=== PATIENT | male | born 1940 | race Caucasian/White ===

== ENCOUNTER 2018-12-27 11:15 | Emergency (ER) | payer MEDICARE, SELFPAY ==
--- NOTE | 2018-12-27 11:22 | DI.RAD.S_ITS ---
PROCEDURE: XR CHEST 1V INDICATIONS: fall, trauma, preop TECHNIQUE: One view of the chest was acquired. COMPARISON: [facility], , CHEST 2 VIEW, 10/08/2016, 11:42. [facility], , CHEST 2 VIEW, 09/21/2014, 10:59. [facility], , CHEST 1 VIEW, 09/24/2011, 2:54. FINDINGS: Surgical changes and devices: Left cardiac pacer device with leads projecting over the right atrium and right ventricle. Mediastinal surgical clips are noted. Mediastinal ostial markers noted. Lungs and pleura: No pleural effusions or pneumothoraces. There are hazy lateral left basilar and bilateral perihilar pulmonary opacities, with lateral left basilar pulmonary opacities persist during the lateral left hemidiaphragm. Lungs are hypoinflated. Mediastinum: Mediastinal contours appear normal. Heart size is normal. There is calcified plaque of the aortic arch. Bones and chest wall: No suspicious bony lesions. Overlying soft tissues appear unremarkable. IMPRESSION: Pulmonary hypoinflation with bilateral perihilar and left basilar opacities likely representing atelectasis (versus pneumonia). Dictated by: Shayan Cox M.D. on 12/27/2018 at 11:57 Approved by: Shayan Cox M.D. on 12/27/2018 at 12:13
[2018-12-27 11:25] VITALS: BP 154/82; PULSE 68; RESP 19; TEMP 36.1; O2SAT 93; BMI 35.1
--- NOTE | 2018-12-27 11:47 | ED.MALEGU ---
HPI - Male Genitourinary General Chief complaint: Urogenital-Male Stated complaint: Frequent urination, high fever & blood pressure Time Seen by Provider: 12/27/18 11:18 Source: patient and family Mode of arrival: ambulatory Limitations: no limitations History of Present Illness HPI Narrative: 78-year-old male nonsmoker with frequent confusion, diabetes, CHF, aortic stenosis, BPH, gait disturbance, end-stage renal failure presents with a chief complaint of urinary frequency over the course of the night, low-grade fever as high as 100 F and elevated blood pressure up to the 150s. Related Data Home Medications Medication Instructions Recorded Confirmed ASPIRIN (#ASPIRIN CHILDREN'S) 81 mg PO BID #0 09/24/11 BUMETANIDE (BUMEX) 2 mg PO Q DAY #0 09/24/11 Coenzyme Q10 (#COENZYME Q-10) 200 mg PO Q DAY #0 09/24/11 LACTULOSE (CONSTULOSE) 60 ml PO Q DAY #0 09/24/11 TIMOLOL MALEATE 1 drp OU QAM #0 09/24/11 allopurinol 150 mg PO QDAY #0 09/24/11 amlodipine [Norvasc] 5 mg PO QDAY #0 09/24/11 bupropion HCl [Wellbutrin SR] 100 mg PO QDAY #0 09/24/11 cholecalciferol (vitamin D3) 1,000 unit PO QDAY #0 09/24/11 [Vitamin D3] fenofibrate nanocrystallized 145 mg PO QDAY #0 09/24/11 [Tricor] gabapentin [Neurontin] 600 mg PO QID #0 09/24/11 insulin aspart U-100 [Novolog 42 - 48 u SC PRN PRN #0 09/24/11 PenFill U-100 Insulin] insulin glargine [Lantus Solostar 12 unit SQ BID #0 09/24/11 U-100 Insulin] olmesartan [Benicar] 40 mg PO QDAY #0 09/24/11 pantoprazole [Protonix] 40 mg PO HS #0 09/24/11 [CENTRUM SLIVER] #0 02/23/13 [FISH OIL ] #0 02/23/13 clonidine HCl 0.5 mg PO BID #0 tab 02/23/13 colesevelam [WelChol] 625 mg PO BIDCC #0 tab 02/23/13 finasteride 5 mg PO QDAY #0 tab 02/23/13 hydrocodone-acetaminophen [Vicodin 1 tab PO Q4HP #0 tab 02/23/13 HP] Previous Rx's Medication Instructions Recorded cephalexin [Keflex] 500 mg PO QID 7 Days #28 cap 12/27/18 Allergies Allergy/AdvReac Type Severity Reaction Status Date / Time adhesive tape [ADHESIVE TAPE] AdvReac Mild TEARS THE Verified 12/27/18 11:25 SKIN hydroxyzine [HYDROXYZINE] AdvReac Mild HALLUCINATI Verified 12/27/18 11:25 ONS Iflfnyk-Cbp-Kfd Reductase AdvReac Mild LEG PAINS Verified 12/27/18 11:25 Inhibitor [VIUELLX-[id number]-KJW REDUCTASE INHIBITOR] travoprost [TRAVOPROST] AdvReac Mild RED EYES Verified 12/27/18 11:25 Review of Systems Constitutional Denies chills, Denies fever(s), Denies lethargy and Denies weakness Eyes Denies change in vision, Denies eye discharge, Denies irritation and Denies loss of vision ENT Ears, Nose, Mouth, and Throat: Denies change in voice, Denies neck pain and Denies sore throat Cardiovascular Denies chest pain, Denies irregular heart rhythm, Denies lightheadedness, Denies palpitations, Denies dyspnea, Denies dyspnea on exertion and Denies orthopnea Respiratory Denies cough, Denies dyspnea, Denies dyspnea on exertion and Denies wheezing Gastrointestinal Gastrointestinal: Denies abdominal pain, Denies change in bowel habits, Denies diarrhea, Denies nausea and Denies vomiting Genitourinary Denies hematuria, Denies flank pain, Reports urinary incontinence and Denies urinary urgency Musculoskeletal Denies neck pain Integumentary/Breasts Denies pruritus, Denies erythema, Denies rash and Denies wounds Neurologic Denies confusion, Denies loss of vision and Denies weakness Psychiatric Denies anxiety, Denies confusion, Denies depression, Denies homicidal ideation and Denies suicidal ideation Endocrine Denies palpitations Hematologic/Lymphatic Denies easy bruising Allergic/Immunologic Denies wheezing PFSH Social History Smoking Status: Never smoker Social History Smoking Status: Never smoker Exam Narrative Exam Narrative: GENERAL: 78-year-old male is pleasantly confused and at patient's neurologic baseline per the was at the bedside. GCS 15, alert and oriented x3 HEAD: Atraumatic. Normocephalic. No temporal or scalp tenderness. EYES: Pupils equal round and reactive. Extraocular motions intact. No scleral icterus. No injection or drainage. ENT: Nose without bleeding, purulent drainage or septal hematoma. Throat without erythema, tonsillar hypertrophy or exudate. Uvula midline. Airway patent. NECK: Trachea midline. No JVD or lymphadenopathy. Supple, nontender, no meningeal signs. CARDIOVASCULAR: Regular rate and rhythm without murmurs, gallops, or rubs. RESPIRATORY: Clear to auscultation. Breath sounds equal bilaterally. No wheezes, rales, or rhonchi. GASTROINTESTINAL: Abdomen soft, non-tender, nondistended. No hepato-splenomegaly, or palpable masses. No guarding. EXTREMITIES: No clubbing, cyanosis, or edema. No joint tenderness, effusion, or edema noted. BACK: Nontender without deformity or crepitance. No flank tenderness. NEURO: AOx3. SKIN: No rash or erythema. Initial Vital Signs Initial Vital Signs: Vital Signs Temperature 97.0 F L 12/27/18 11:25 Pulse Rate 68 12/27/18 11:25 Respiratory Rate 19 12/27/18 11:25 Blood Pressure 154/82 H 12/27/18 11:25 Pulse Oximetry 93 12/27/18 11:25 Course Course Narrative: Patient was noted to as 600 mL of urine in his bladder, Finley catheter placed, urine dip suggest UTI, sent for culture Orders Ordered: ED Orders 12/27/18 11:22 XR chest 1V Stat 12/27/18 11:40 Basic Metabolic Panel Stat Complete Blood Count AUTO DIFF Stat Lactate (Lactic Acid) Stat Magnesium Stat Procalcitonin Stat Troponin & CK Cardiac Panel Stat 12/27/18 11:50 Blood Culture Stat 12/27/18 12:26 Urine Culture Stat Urine Microscopic Stat 12/27/18 13:34 Trop I [Troponin I] Stat Vital Signs - 8 hr 12/27/18 11:25 12/27/18 12:08 12/27/18 14:13 Temperature 97.0 F L Pulse Rate 68 60 61 Respiratory Rate 19 18 16 Blood Pressure 154/82 H Blood Pressure [Right Arm] 144/76 H 170/86 H Pulse Oximetry 93 94 94 12/27/18 15:15 Temperature Pulse Rate 61 Respiratory Rate 20 Blood Pressure 169/83 H Blood Pressure [Right Arm] Pulse Oximetry 94 MDM - Male Genitourinary Lab Data Result diagrams: 12/27/18 11:40 12/27/18 11:40 Lab Results 12/27/18 12/27/18 12/27/18 Range/Units 11:40 11:40 11:40 WBC 9.9 (4.5-11.0) X10^3/uL RBC 4.89 (4.5-5.9) X10^6/uL Hgb 14.2 (13.5-17.5) g/dL Hct 43.6 (41-53) % MCV 89.1 (80-100) fL MCH 29.1 (26-34) PG MCHC 32.6 (30-36) % RDW 16.0 H (11.6-14.8) % Plt Count 164 (150-400) X10^3/uL Neut % (Auto) 81.0 H (50-75) % Lymph % (Auto) 12.5 L (25-40) % [place] % (Auto) 5.5 (3-14) % Eos % (Auto) 0.4 L (2-4) % Baso % (Auto) 0.6 (0-2) % Neut # (Auto) 8100 H (8552-5118) /uL Lymph # (Auto) 1200 (1421-6132) /uL [place] # (Auto) 500 (0-900) /uL Eos # (Auto) 0 (0-450) /uL Baso # (Auto) 100 (0-100) /uL Sodium 142 (137-145) mmol/L Potassium 4.1 (3.4-5.1) mmol/L Chloride 105 (98-107) mmol/L Carbon Dioxide 28 (22-32) mmol/L BUN 50 H (9-20) mg/dL Creatinine 2.80 H (0.66-1.25) mg/dL Estimated GFR 21.9 L (>60) mL/min BUN/Creatinine Ratio 17.9 (6-22) Glucose 250 H (80-110) mg/dL Lactate (0.7-2.1) mmol/L Calcium 9.8 (8.4-10.2) mg/dL Magnesium 2.0 (1.6-2.3) mg/dL Total Creatine Kinase (55-170) U/L CK-MB (CK-2) CK-MB (CK-2) Rel Index Troponin I (0.01-0.034) ng/mL Procalcitonin 0.12 (<0.5) ng/mL Urine RBC (0-5/HPF) Urine WBC (0-5/HPF) Ur Squamous Epith Cells (0-5/HPF) Urine Bacteria (None) Ur Culture Indicated? 12/27/18 12/27/18 12/27/18 Range/Units 11:40 11:40 12:26 WBC (4.5-11.0) X10^3/uL RBC (4.5-5.9) X10^6/uL Hgb (13.5-17.5) g/dL Hct (41-53) % MCV (80-100) fL MCH (26-34) PG MCHC (30-36) % RDW (11.6-14.8) % Plt Count (150-400) X10^3/uL Neut % (Auto) (50-75) % Lymph % (Auto) (25-40) % [place] % (Auto) (3-14) % Eos % (Auto) (2-4) % Baso % (Auto) (0-2) % Neut # (Auto) (9770-4117) /uL Lymph # (Auto) (9844-1274) /uL [place] # (Auto) (0-900) /uL Eos # (Auto) (0-450) /uL Baso # (Auto) (0-100) /uL Sodium (137-145) mmol/L Potassium (3.4-5.1) mmol/L Chloride (98-107) mmol/L Carbon Dioxide (22-32) mmol/L BUN (9-20) mg/dL Creatinine (0.66-1.25) mg/dL Estimated GFR (>60) mL/min BUN/Creatinine Ratio (6-22) Glucose (80-110) mg/dL Lactate 1.4 (0.7-2.1) mmol/L Calcium (8.4-10.2) mg/dL Magnesium (1.6-2.3) mg/dL Total Creatine Kinase 57 (55-170) U/L CK-MB (CK-2) TNP CK-MB (CK-2) Rel Index TNP Troponin I 0.067 H (0.01-0.034) ng/mL Procalcitonin (<0.5) ng/mL Urine RBC None seen (0-5/HPF) Urine WBC 1-5/hpf (0-5/HPF) Ur Squamous Epith Cells 0-1 /hpf (0-5/HPF) Urine Bacteria None seen (None) Ur Culture Indicated? Specimen cultured 12/27/18 Range/Units 13:34 WBC (4.5-11.0) X10^3/uL RBC (4.5-5.9) X10^6/uL Hgb (13.5-17.5) g/dL Hct (41-53) % MCV (80-100) fL MCH (26-34) PG MCHC (30-36) % RDW (11.6-14.8) % Plt Count (150-400) X10^3/uL Neut % (Auto) (50-75) % Lymph % (Auto) (25-40) % [place] % (Auto) (3-14) % Eos % (Auto) (2-4) % Baso % (Auto) (0-2) % Neut # (Auto) (8755-4983) /uL Lymph # (Auto) (5306-0721) /uL [place] # (Auto) (0-900) /uL Eos # (Auto) (0-450) /uL Baso # (Auto) (0-100) /uL Sodium (137-145) mmol/L Potassium (3.4-5.1) mmol/L Chloride (98-107) mmol/L Carbon Dioxide (22-32) mmol/L BUN (9-20) mg/dL Creatinine (0.66-1.25) mg/dL Estimated GFR (>60) mL/min BUN/Creatinine Ratio (6-22) Glucose (80-110) mg/dL Lactate (0.7-2.1) mmol/L Calcium (8.4-10.2) mg/dL Magnesium (1.6-2.3) mg/dL Total Creatine Kinase (55-170) U/L CK-MB (CK-2) CK-MB (CK-2) Rel Index Troponin I 0.059 H (0.01-0.034) ng/mL Procalcitonin (<0.5) ng/mL Urine RBC (0-5/HPF) Urine WBC (0-5/HPF) Ur Squamous Epith Cells (0-5/HPF) Urine Bacteria (None) Ur Culture Indicated? Urine Dip Bedside Urine Glucose Negative Bedside Urine Bilirubin - Negative Bedside Urine Ketone - Negative Urine Specific [place] 1.015 Bedside Urine Occult Blood - Negative Bedside Urine pH 6.5 Bedside Urine Protein ++ 100 Bedside Urine Urobilinogen +/- 1mg Bedside Urine Nitrite + Positive Bedside Urine Leukocytes + 70 Esterase MDM Narrative Medical decision making narrative: 78-year-old male with chief complaint of frequency of urination and urinary incontinence since last night. Found to have urinary retention with 600 cc of urine, Finley catheter placed. Urine POC with leukocytes, leuk esterase and nitrites. Patient treated with antibiotics, Finley catheter placed and encouraged to follow up with Urology, contact information provided. Patient given return precautions. Questions answered to his, and 's apparent satisfaction Discharge Plan Departure Patient Disposition: Home Clinical Impression: Acute retention of urine Urinary tract infection Qualifiers: Urinary tract infection type: site unspecified Hematuria presence: without hematuria Qualified Code(s): N39.0 - Urinary tract infection, site not specified Discharge Date/Time: 12/27/18 15:32 Interventions: ED Discharge Assessment Last Done: 12/27/18 15:15 Instructions: DI for Urinary Tract Infection (UTI), DI for Urinary Retention in Men Activity Restrictions/Additional Instructions: *You have been diagnosed with [acute urinary retention and urinary tract infection] *What to do: *Take medications as directed *Follow up with your primary care provider in 2-3 days, call for an appointment. Let them know you were seen in the Emergency Department and that we ask that you be seen in follow up *Return to ER if you should have any new, worsening or concerning symptoms, such as [fever over 101 F, shaking chills, persistent vomiting or other bothersome symptoms] Prescriptions: New cephalexin [Keflex] 500 mg capsule 500 mg PO QID 7 Days Qty: 28 RF: 0 No Action BUMETANIDE (BUMEX) 2 mg PO Q DAY Qty: 0 RF: 0 LACTULOSE (CONSTULOSE) 60 ml PO Q DAY Qty: 0 RF: 0 insulin glargine [Lantus Solostar U-100 Insulin] 100 UNIT/1 ML insulin pen 12 unit SQ BID Qty: 0 RF: 0 insulin aspart U-100 [Novolog PenFill U-100 Insulin] 100 UNIT/1 ML cartridge 42 - 48 u SC PRN PRNQty: 0 RF: 0 ASPIRIN (#ASPIRIN CHILDREN'S) 81 mg PO BID Qty: 0 RF: 0 Coenzyme Q10 (#COENZYME Q-10) 200 mg PO Q DAY Qty: 0 RF: 0 amlodipine [Norvasc] 5 MG tablet 5 mg PO QDAY Qty: 0 RF: 0 allopurinol 300 MG tablet 150 mg PO QDAY Qty: 0 RF: 0 bupropion HCl [Wellbutrin SR] 100 MG tablet extended release 12 hr 100 mg PO QDAY Qty: 0 RF: 0 olmesartan [Benicar] 20 MG tablet 40 mg PO QDAY Qty: 0 RF: 0 fenofibrate nanocrystallized [Tricor] 145 MG tablet 145 mg PO QDAY Qty: 0 RF: 0 cholecalciferol (vitamin D3) [Vitamin D3] 1,000 UNIT tablet 1,000 unit PO QDAY Qty: 0 RF: 0 pantoprazole [Protonix] 40 MG tablet,delayed release (DR/EC) 40 mg PO HS Qty: 0 RF: 0 gabapentin [Neurontin] 600 MG tablet 600 mg PO QID Qty: 0 RF: 0 TIMOLOL MALEATE 1 drp OU QAM Qty: 0 RF: 0 hydrocodone-acetaminophen [Vicodin HP] 10 MG/300 MG tablet 1 tab PO Q4HP Qty: 0 RF: 0 colesevelam [WelChol] 625 MG tablet 625 mg PO BIDCC Qty: 0 RF: 0 finasteride 5 MG tablet 5 mg PO QDAY Qty: 0 RF: 0 [CENTRUM SLIVER] Qty: 0 RF: 0 [FISH OIL ] Qty: 0 RF: 0 clonidine HCl 0.1 MG tablet 0.5 mg PO BID Qty: 0 RF: 0 Referrals: Drew Bermeo MD [Non-Staff] - Zoltan Wellington MD [Primary Care Provider] -
[2018-12-27 11:51] LABS: Add Manual Diff / Slide Review NO; Basophils Absolute Auto 100 /uL (0-100); Basophils Percent Auto 0.6 % (0-2); Eosinophils Absolute Auto 0 /uL (0-450); Eosinophils Percent Auto 0.4 % (2-4); Hematocrit 43.6 % (41-53); Hemoglobin 14.2 g/dL (13.5-17.5); Lymphocytes Absolute Auto 1200 /uL (1100-4500); Lymphocytes Percent Auto 12.5 % (25-40); Mean Corpuscular HGB Conc 32.6 % (30-36); Mean Corpuscular Hemoglobin 29.1 PG (26-34); Mean Corpuscular Volume 89.1 fL (80-100); Monocytes Absolute Auto 500 /uL (0-900); Monocytes Percent Auto 5.5 % (3-14); Neutrophils Absolute Auto 8100 /uL (1500-7000); Platelet Count 164 X10^3/uL (150-400); Red Blood Cell Count 4.89 X10^6/uL (4.5-5.9); White Blood Cell Count 9.9 X10^3/uL (4.5-11.0)
[2018-12-27 12:03] LABS: Creatine Kinase 57 U/L (55-170); Lactate (Lactic Acid) 1.4 mmol/L (0.7-2.1)
[2018-12-27 12:04] LABS: BUN Creatinine Ratio 17.9 (6-22); Blood Urea Nitrogen 50 mg/dL (9-20); Calcium 9.8 mg/dL (8.4-10.2); Carbon Dioxide 28 mmol/L (22-32); Chloride 105 mmol/L (98-107); Estimated Glomerular Filt Rate 21.9 mL/min (>60); Glucose 250 mg/dL (80-110); HEMOLYSIS < 15 (0-50); Potassium 4.1 mmol/L (3.4-5.1); Sodium 142 mmol/L (137-145)
[2018-12-27 12:08] VITALS: BP 144/76; PULSE 60; RESP 18; O2SAT 94
[2018-12-27 12:16] LABS: Troponin I 0.067 ng/mL (0.01-0.034)
[2018-12-27 12:18] LABS: Procalcitonin 0.12 ng/mL (<0.5)
[2018-12-27 14:06] LABS: Troponin I 0.059 ng/mL (0.01-0.034)
[2018-12-27 14:13] VITALS: BP 170/86; PULSE 61; RESP 16; O2SAT 94
[2018-12-27 14:29] LABS: Bacteria Urine None Seen; RBC Urine None Seen (0-5/HPF)
[2018-12-27 14:39] LABS: Culture Indicated Urine Specimen Cultured; Squamous Epithelial Cell Urine 0-1 /HPF (0-5/HPF); WBC Urine 1-5/HPF (0-5/HPF)
[2018-12-27 15:15] VITALS: BP 169/83; PULSE 61; RESP 20; O2SAT 94
--- NOTE | 2018-12-27 15:31 | PC.NURSE ---
stated concern over ability to get pt from car to house. Ambulation trial per MD VO. Did well. states about at his baseline
== END 2018-12-27 15:32 | disposition home or self-care (01) ==
PROVIDERS: Emergency Provider Emergency Medicine; PCP Family Medicine
DX: R33.8 Other retention of urine (principal); N39.0 Urinary tract infection, site not specified
CPT/HCPCS: 36415; 36591; 51701; 71045; 80048; 81003; 81015; 82550; 83605; 83735; 84145; 84484; 85025; 87040; 87086; 99284

== ENCOUNTER 2019-03-10 10:06 | Emergency (ER) | payer MEDICARE, SELFPAY ==
[2019-03-10 10:15] VITALS: BP 144/72; PULSE 59; RESP 20; TEMP 36.4
--- NOTE | 2019-03-10 11:11 | DI.RAD.S_ITS ---
PROCEDURE: XR CHEST 1V INDICATIONS: SHORTNESS OF BREATH TECHNIQUE: One view of the chest was acquired. COMPARISON: [facility], CR, XR CHEST 1V, 12/27/2018, 11:30. FINDINGS: Surgical changes and devices: A left-sided cardiac pacer/defibrillator is present. Median sternotomy wires are noted. Lungs and pleura: There are low lung volumes. Linear areas of increased density are evident at the right lung base. There is elevation of the right diaphragm. There is a vague density identified at the left lung base that partially obscures the left costophrenic angle. Mediastinum: Mediastinal contours appear normal. Heart size is enlarged. There is aortic atherosclerosis. Bones and chest wall: No suspicious bony lesions. Overlying soft tissues appear unremarkable. IMPRESSION: 1. Cardiomegaly without overt heart failure. 2. Probable left basilar atelectasis versus scarring. Superimposed pneumonia is difficult to exclude. 3. Minimal right basilar atelectasis/scarring. Dictated by: Anthony Melvin M.D. on 03/10/2019 at 10:40 Approved by: Anthony Melvin M.D. on 03/10/2019 at 10:48
--- NOTE | 2019-03-10 11:13 | ED.SOB ---
HPI - SOB/Dyspnea <Donna Villanueva CUPOLA OPERATOR - Last Filed: 03/10/19 15:38> General Chief Complaint: Shortness of Breath/Dyspnea Stated Complaint: Has been weak for 3 days, getting worse Time Seen by Provider: 03/10/19 11:00 Source: patient and family Mode of arrival: Wheelchair Limitations: no limitations History of Present Illness HPI Narrative: 78-year-old male with a history of CHF, pacemaker, chronic kidney failure, diabetes to, CAD, aortic valve replacement, DESTIN, and HDL, presents emergency department today with his . He states that he has fine and that his brought him here. He states that his tried to kill him with multiple pills. His explains that he was recently in [facility] in [facility], and was admitted on February 17 for CHF and fluid in his lungs. At that point he ended up staying 1 week in the hospital and another week in a rehab facility. Since she has brought him home, she states his legs have been weak and he is only able to ambulate from the bedroom to the bathroom, this has been unchanged since discharge from the rehab facility. However, she is concerned that he seems to be more short of breath and that he has gained 1 lb a day since discharge on March 02. She states his weight after discharge was 237 lbs and yesterday was 243 lbs. Patient is very irritable during history, he tries to talk over his , and believes he does not need to be here. He is alert and oriented. He states when he took all his pills he had a small amount of stomach pain. Denies chest pain, shortness of breath, abdominal pain, vomiting, fevers, diarrhea, weakness, orthopnea or other concerns. Related Data Home Medications Medication Instructions Recorded Confirmed Lantus Solostar U-100 Insulin 14 unit SQ BID PRN #0 09/24/11 03/10/19 Novolog PenFill U-100 Insulin 30 - 50 u SC PRN PRN #0 09/24/11 03/10/19 allopurinol 150 mg PO DAILY #0 09/24/11 03/10/19 aspirin 162 mg PO QPM #0 09/24/11 03/10/19 bupropion HCl [Wellbutrin SR] 100 mg PO BID #0 09/24/11 03/10/19 cholecalciferol (vitamin D3) 1,000 unit PO DAILY #0 09/24/11 03/10/19 [Vitamin D3] coenzyme Q10 [CoQ-10] 200 mg PO DAILY #0 09/24/11 03/10/19 fenofibrate nanocrystallized 145 mg PO QPM #0 09/24/11 03/10/19 [Tricor] clonidine HCl 0.1 mg PO BID #0 tab 02/23/13 03/10/19 colesevelam [WelChol] 625 mg PO BIDCC #0 tab 02/23/13 03/10/19 finasteride 5 mg PO QPM #0 tab 02/23/13 03/10/19 uiqsuhgh-gja-PY-lycopen-lutein 1 tab PO DAILY #0 02/23/13 03/10/19 [Centrum Silver Men] Fahad Red Fish Oil 2 cap PO DAILY 03/10/19 03/10/19 albuterol sulfate [ProAir HFA] 2 puff INHALATION Q4H PRN 03/10/19 03/10/19 fluoxetine 20 mg PO DAILY 03/10/19 03/10/19 fluticasone propionate 1 spray INTRANASAL DAILY PRN 03/10/19 03/10/19 gabapentin 100 mg PO QID 03/10/19 03/10/19 hydralazine 75 mg PO BID 03/10/19 03/10/19 hydrocodone-acetaminophen 1 tab PO Q4H PRN 03/10/19 03/10/19 lactulose [Generlac] 60 ml PO DAILY 03/10/19 03/10/19 latanoprost [Xalatan] 1 drp EYE-BOTH BEDTIME 03/10/19 03/10/19 metoprolol tartrate 50 mg PO BID 03/10/19 03/10/19 olmesartan 40 mg PO DAILY 03/10/19 03/10/19 pantoprazole 40 mg PO QPM 03/10/19 03/10/19 pregabalin 75 mg PO BID 03/10/19 03/10/19 timolol maleate 1 drp EYE-BOTH QAM 03/10/19 03/10/19 torsemide 20 mg PO DAILY 03/10/19 03/10/19 Allergies Allergy/AdvReac Type Severity Reaction Status Date / Time adhesive tape [ADHESIVE TAPE] AdvReac Mild TEARS THE Verified 12/27/18 11:25 SKIN hydroxyzine [HYDROXYZINE] AdvReac Mild HALLUCINATI Verified 12/27/18 11:25 ONS Ywdsrsl-Xew-Hsr Reductase AdvReac Mild LEG PAINS Verified 12/27/18 11:25 Inhibitor [OBOCLVD-LDS-JHW REDUCTASE INHIBITOR] travoprost [TRAVOPROST] AdvReac Mild RED EYES Verified 12/27/18 11:25 Review of Systems <ERICKA Peralta - Last Filed: 03/10/19 15:38> Review of Systems Narrative: REVIEW OF SYSTEMS: GENERAL: Denies fever or chills. HENT: No head trauma, hearing loss or sore throat. EYES: No loss of vision, double vision, eye pain, or irritation. CARDIOVASCULAR: No chest pain or syncope. RESPIRATORY: states that it appears that patient is more short of breath. GASTROINTESTINAL: No nausea, vomiting, diarrhea, or constipation. GENITOURINARY: No flank pain or dysuria. MUSCULOSKELETAL: No pain, weakness, or deformities. INTEGUMENTARY: No rash, lesions, or pruritus. NEURO: No numbness, tingling, memory loss, or confusion. PSYCH: No behavior or mood changes. PFSH <ERICKA Peralta - Last Filed: 03/10/19 15:38> Medical History CHF (congestive heart failure) (Acute) CKD (chronic kidney disease) (Acute) Diabetes type 2, controlled (Acute) Glaucoma (Acute) Pacemaker (Acute) Surgical History H/O aortic valve replacement (Acute) Social History Smoking Status: Never smoker Social History Smoking Status: Never smoker Exam <ERICKA Peralta - Last Filed: 03/10/19 15:38> Initial Vital Signs Initial Vital Signs: Vital Signs Temperature 97.6 F 03/10/19 10:15 Pulse Rate 59 L 03/10/19 10:15 Respiratory Rate 20 03/10/19 10:15 Blood Pressure 144/72 H 03/10/19 10:15 PHYSICAL EXAMINATION: GENERAL: Well groomed, alert. Patient is uncooperative, has a history of dementia. Answers questions promptly, however continues to resist care. Vital signs noted. HENT: Normocephalic, atraumatic. Ear canals patent. Oral mucosa is pink and moist. EYES: Conjunctiva pink, sclera white, no periorbital swelling. CHEST: Normal to inspection and without deformities. CARDIOVASCULAR: Paced rhythm. No bruits noted. 1+ pedal edema. RESPIRATORY: Normal respiratory rate, trachea midline, airway patent. No stridor, nasal flaring or accessory muscle use. Lung sounds are decreased in bases, no crackles, rhonchi, or wheezes noted. GASTROINTESTINAL: Bowel sounds normoactive. Abdomen is soft and non-tender. No organomegaly. : Patient attempted to urinate in the emergency department, was unable to. Bladder scan resulted in 86 mL in bladder. MUSCULOSKELETAL: Equal tone and mass bilaterally. EXTREMITIES: CMS intact. Moves all extremities. SKIN: Warm, dry, soft, appropriate color for ethnicity. No lesions, rashes, or wounds. NEURO: Alert and Oriented to self and time. Good coordination. No ataxia. PSYCH: Mood is slightly combative. <Liset Han DO - Last Filed: 03/11/19 10:13> Initial Vital Signs Initial Vital Signs: Vital Signs Temperature 97.6 F 03/10/19 10:15 Pulse Rate 59 L 03/10/19 10:15 Respiratory Rate 20 03/10/19 10:15 Blood Pressure 144/72 H 03/10/19 10:15 Course <ERICKA Peralta - Last Filed: 03/10/19 15:38> Course Course Narrative: Patient refused all interventions initially, he states that the pills he is taking are trying to kill him. He did not want to stay and he wanted to leave. After much conversation, reorientation, and common thing weeks from staff patient agreed to blood draw an EKG. Had an extensive conversation with the patient and his about the severity of his condition, and the possible need for dialysis, they agreed to admission and/or transfer if needed. Patient and stated that they would like dialysis if needed. At 1435 I spoke with admitting provider Dr. Chiu about possible admission, she advised to contact [facility] as patient was interested in dialysis. At [address] Mclean, hospitalist that [facility] about the patient he said he would accept for requesting to have the agriculture technician alerted. At [address] Fox about the patient, he stated it was reasonable to admit to [facility] for observation further discussion of treatment. Patient family where updated on plan of care. Patient is more cooperative pull at this time. Pertinent labs from [facility] taken on 03/04/2019 NA 142.0 K 4.0 Co2 31.0 Creatinine 3.1 BUN 80.0 Ca 9.7 It appears patient was discharged taking 2 Turosemide 40 mg p.o. every day in the morning and 20 mg in the afternoon and in the evening. Orders Ordered: Discontinued Medications Sodium Chloride (Normal Saline 0.9%) 1,000 mls @ 125 mls/hr IV CONT [facility] Last Admin: 03/10/19 15:45 Dose: 125 mls/hr Documented by: LREED Vital Signs Vital signs: Vital Signs - 8 hr 03/10/19 10:15 Temperature 97.6 F Pulse Rate 59 L Respiratory Rate 20 Blood Pressure 144/72 H <Liset Han DO - Last Filed: 03/11/19 10:13> Orders Ordered: Discontinued Medications Sodium Chloride (Normal Saline 0.9%) 1,000 mls @ 125 mls/hr IV CONT [facility] Last Admin: 03/10/19 15:45 Dose: 125 mls/hr Documented by: LREED Vital Signs Vital signs: Vital Signs - 8 hr 03/10/19 10:15 Temperature 97.6 F Pulse Rate 59 L Respiratory Rate 20 Blood Pressure 144/72 H MDM - SOB/Dyspnea <ERICKA Peralta - Last Filed: 03/10/19 15:38> Medical Records Attestation: I reviewed the patient's medical records. Lab Data Attestation: I reviewed the patient's lab results. Result diagrams: 03/10/19 12:38 03/10/19 12:38 Labs: Lab Results 03/10/19 03/10/19 Range/Units 12:38 12:38 WBC 6.5 (4.5-11.0) X10^3/uL RBC 4.68 (4.5-5.9) X10^6/uL Hgb 14.0 (13.5-17.5) g/dL Hct 42.4 (41-53) % MCV 90.6 (80-100) fL MCH 29.8 (26-34) PG MCHC 32.9 (30-36) % RDW 15.3 H (11.6-14.8) % Plt Count 229 (150-400) X10^3/uL Neut % (Auto) 69.9 (50-75) % Lymph % (Auto) 18.1 L (25-40) % Kerr % (Auto) 8.6 (3-14) % Eos % (Auto) 2.7 (2-4) % Baso % (Auto) 0.7 (0-2) % Neut # (Auto) 4500 (3857-7908) /uL Lymph # (Auto) 1200 (5954-4125) /uL Kerr # (Auto) 600 (0-900) /uL Eos # (Auto) 200 (0-450) /uL Baso # (Auto) 0 (0-100) /uL Sodium 144 (137-145) mmol/L Potassium 5.2 H (3.4-5.1) mmol/L Chloride 102 (98-107) mmol/L Carbon Dioxide 30 (22-32) mmol/L BUN 107 H* (9-20) mg/dL Creatinine 4.70 H (0.66-1.25) mg/dL Estimated GFR 12.1 L (>60) mL/min BUN/Creatinine Ratio 22.8 H (6-22) Glucose 212 H (80-110) mg/dL Calcium 9.8 (8.4-10.2) mg/dL Total Bilirubin 0.5 (0.2-1.3) mg/dL AST 30 (17-59) IU/L ALT 21 (21-72) IU/L Alkaline Phosphatase 54 (38-126) U/L Total Creatine Kinase 53 L (55-170) U/L CK-MB (CK-2) TNP CK-MB (CK-2) Rel Index TNP Troponin I 0.054 H (0.01-0.034) ng/mL B-Natriuretic Peptide 541 H (<100) Total Protein 7.5 (6.3-8.2) g/dL Albumin 4.5 (3.5-5.0) g/dL Globulin 3.0 (1.7-4.1) g/dL Albumin/Globulin Ratio 1.5 (1.0-2.8) Imaging Data Chest x-ray: Radiologist's impression: [address] [address] XRay Report Signed Patient: Liu Fernández MMR#: [id number] : 8Acct:[id number] Age/Sex: 78 / MDate of Service: 03/10/19 Loc: ED Accession Number: [id number] Procedure: XR chest 1V Ordering Provider: Donna Villanueva PROCEDURE: XR CHEST 1V INDICATIONS: SHORTNESS OF BREATH TECHNIQUE: One view of the chest was acquired. COMPARISON: [facility], , XR CHEST 1V, 12/27/2018, 11:30. FINDINGS: Surgical changes and devices: A left-sided cardiac pacer/defibrillator is present. Median sternotomy wires are noted. Lungs and pleura: There are low lung volumes. Linear areas of increased density are evident at the right lung base. There is elevation of the right diaphragm. There is a vague density identified at the left lung base that partially obscures the left costophrenic angle. Mediastinum: Mediastinal contours appear normal. Heart size is enlarged. There is aortic atherosclerosis. Bones and chest wall: No suspicious bony lesions. Overlying soft tissues appear unremarkable. IMPRESSION: 1. Cardiomegaly without overt heart failure. 2. Probable left basilar atelectasis versus scarring. Superimposed pneumonia is difficult to exclude. 3. Minimal right basilar atelectasis/scarring. Dictated by: Anthony Melvin M.D. on 03/10/2019 at 10:40 Approved by: Anthony Melvin M.D. on 03/10/2019 at 10:48 ECG Data Interpretation: EKG obtained, paced rhythm, rate 60, QTC 475. No Sgarbossa Criteria met. EKG also viewed by Dr. Han. [facility] Narrative Medical decision making narrative: Patient appears to be in acute renal failure due to laboratory results. Differential for cause includes worsening chronic renal failure versus drug induced renal failure from diuretics. Less concern for fluid overload due to lack of systemic symptoms such as crackles, fluid around the lungs, or worsening lower leg edema. However, elevated BNP may require further monitoring. Patient stated that he would want dialysis, after discussion with [facility] hospitalist and agriculture technician, transfer was approved for possible discussion about dialysis if indicated by a provider is. <Liset Han, DO - Last Filed: 03/11/19 10:13> Lab Data Labs: Lab Results 03/10/19 03/10/19 Range/Units 12:38 12:38 WBC 6.5 (4.5-11.0) X10^3/uL RBC 4.68 (4.5-5.9) X10^6/uL Hgb 14.0 (13.5-17.5) g/dL Hct 42.4 (41-53) % MCV 90.6 (80-100) fL MCH 29.8 (26-34) PG MCHC 32.9 (30-36) % RDW 15.3 H (11.6-14.8) % Plt Count 229 (150-400) X10^3/uL Neut % (Auto) 69.9 (50-75) % Lymph % (Auto) 18.1 L (25-40) % Kerr % (Auto) 8.6 (3-14) % Eos % (Auto) 2.7 (2-4) % Baso % (Auto) 0.7 (0-2) % Neut # (Auto) 4500 (7095-7529) /uL Lymph # (Auto) 1200 (3838-2124) /uL Kerr # (Auto) 600 (0-900) /uL Eos # (Auto) 200 (0-450) /uL Baso # (Auto) 0 (0-100) /uL Sodium 144 (137-145) mmol/L Potassium 5.2 H (3.4-5.1) mmol/L Chloride 102 (98-107) mmol/L Carbon Dioxide 30 (22-32) mmol/L BUN 107 H* (9-20) mg/dL Creatinine 4.70 H (0.66-1.25) mg/dL Estimated GFR 12.1 L (>60) mL/min BUN/Creatinine Ratio 22.8 H (6-22) Glucose 212 H (80-110) mg/dL Calcium 9.8 (8.4-10.2) mg/dL Total Bilirubin 0.5 (0.2-1.3) mg/dL AST 30 (17-59) IU/L ALT 21 (21-72) IU/L Alkaline Phosphatase 54 (38-126) U/L Total Creatine Kinase 53 L (55-170) U/L CK-MB (CK-2) TNP CK-MB (CK-2) Rel Index TNP Troponin I 0.054 H (0.01-0.034) ng/mL B-Natriuretic Peptide 541 H (<100) Total Protein 7.5 (6.3-8.2) g/dL Albumin 4.5 (3.5-5.0) g/dL Globulin 3.0 (1.7-4.1) g/dL Albumin/Globulin Ratio 1.5 (1.0-2.8) ECG Data Attestation: I personally reviewed and interpreted this ECG as follows: Prior ECG tracings: available for review Interpretation: Paced rhythm no ST changes no peaked T-waves, previous EKGs 2011 no pacemaker noted at that time Discharge Plan Departure Patient Disposition: [facility] Clinical Impression: Acute renal failure Qualifiers: Acute renal failure type: unspecified Qualified Code(s): N17.9 - Acute kidney failure, unspecified Discharge Date/Time: 03/10/19 15:56 Prescriptions: No Action Lantus Solostar U-100 Insulin 100 UNIT/1 ML insulin pen 14 unit SQ BID PRN (Reason: as directed) Qty: 0 RF: 0 Novolog PenFill U-100 Insulin 100 UNIT/1 ML cartridge 30 - 50 u SC PRN PRN (Reason: as directed) Qty: 0 RF: 0 aspirin 81 mg Tablet,Delayed Release (Dr/Ec) 162 mg PO QPM Qty: 0 RF: 0 coenzyme Q10 [CoQ-10] 100 mg Capsule 200 mg PO DAILY Qty: 0 RF: 0 allopurinol 300 MG tablet 150 mg PO DAILY Qty: 0 RF: 0 bupropion HCl [Wellbutrin SR] 100 MG tablet extended release 12 hr 100 mg PO BID Qty: 0 RF: 0 fenofibrate nanocrystallized [Tricor] 145 MG tablet 145 mg PO QPM Qty: 0 RF: 0 cholecalciferol (vitamin D3) [Vitamin D3] 1,000 UNIT tablet 1,000 unit PO DAILY Qty: 0 RF: 0 colesevelam [WelChol] 625 MG tablet 625 mg PO BIDCC Qty: 0 RF: 0 finasteride 5 MG tablet 5 mg PO QPM Qty: 0 RF: 0 Centrum Silver Men 300-600-300 mcg Tablet 1 tab PO DAILY Qty: 0 RF: 0 clonidine HCl 0.1 MG tablet 0.1 mg PO BID Qty: 0 RF: 0 hydrocodone-acetaminophen 5-325 mg tablet 1 tab PO Q4H PRN (Reason: pain) RF: 0 hydralazine 25 mg tablet 75 mg PO BID RF: 0 fluoxetine 20 mg capsule 20 mg PO DAILY RF: 0 lactulose [Generlac] 10 gram/15 mL solution 60 ml PO DAILY RF: 0 latanoprost [Xalatan] 0.005 % drops 1 drp EYE-BOTH BEDTIME RF: 0 torsemide 10 mg tablet 20 mg PO DAILY RF: 0 pantoprazole 40 mg tablet,delayed release (DR/EC) 40 mg PO QPM RF: 0 olmesartan 40 mg tablet 40 mg PO DAILY RF: 0 metoprolol tartrate 25 mg tablet 50 mg PO BID RF: 0 gabapentin 100 mg capsule 100 mg PO QID RF: 0 fluticasone propionate 50 mcg/actuation Cavalier,Suspension 1 spray INTRANASAL DAILY PRN (Reason: Allergy Symptoms) RF: 0 albuterol sulfate [ProAir HFA] 90 mcg/actuation HFA aerosol inhaler 2 puff INHALATION Q4H PRN (Reason: Shortness Of Breath) RF: 0 pregabalin 75 mg Capsule 75 mg PO BID RF: 0 timolol maleate 0.25 % Drops 1 drp EYE-BOTH QAM RF: 0 Fahad Red Fish Oil 2 cap PO DAILY RF: 0 Referrals: Zoltan Wellington MD [Primary Care Provider] -
--- NOTE | 2019-03-10 12:04 | PC.NURSE ---
Patient had asked for food, Provider agreed. I brought him food and he said to put it in the trash as he wants to stop eating altogether.
--- NOTE | 2019-03-10 12:11 | PC.NURSE ---
I approached pt and asked if he would be willing to change into a gown- pt responded nope. When asked why he felt that way he stated that it's too close to , i dont want it. When then asked if he would be ok with me putting the phototypesetting equipment monitor and bp/o2 on he stated no, and that he didn't want any of it. JOSIAS arrieta.
--- NOTE | 2019-03-10 12:15 | PC.NURSE ---
Pt rang call maryse, when I went in to see what he needed he stated that he wanted a phone book and phone to call the police. When I asked why he wanted to call the police he stated you guys are keeping me here! You wont let me leave. I informed him that we are not keeping him here and that he could leave any time he wants. He then stated How? You guys took my legs and expect me to walk. Pt was then told again that we are not keeping him here against his will.
[2019-03-10 12:47] LABS: Add Manual Diff / Slide Review NO; Basophils Absolute Auto 0 /uL (0-100); Basophils Percent Auto 0.7 % (0-2); Eosinophils Absolute Auto 200 /uL (0-450); Eosinophils Percent Auto 2.7 % (2-4); Hematocrit 42.4 % (41-53); Lymphocytes Absolute Auto 1200 /uL (1100-4500); Lymphocytes Percent Auto 18.1 % (25-40); Mean Corpuscular HGB Conc 32.9 % (30-36); Mean Corpuscular Hemoglobin 29.8 PG (26-34); Mean Corpuscular Volume 90.6 fL (80-100); Monocytes Absolute Auto 600 /uL (0-900); Monocytes Percent Auto 8.6 % (3-14); Neutrophils Absolute Auto 4500 /uL (1500-7000); Neutrophils Percent Auto 69.9 % (50-75); Platelet Count 229 X10^3/uL (150-400); Red Blood Cell Count 4.68 X10^6/uL (4.5-5.9); Red Cell Distribution Width 15.3 % (11.6-14.8); White Blood Cell Count 6.5 X10^3/uL (4.5-11.0)
[2019-03-10 12:56] LABS: Alanine Aminotransferase 21 IU/L (21-72); Albumin 4.5 g/dL (3.5-5.0); Albumin Globulin Ratio 1.5 (1.0-2.8); Alkaline Phosphatase 54 U/L (38-126); Aspartate Aminotransferase 30 IU/L (17-59); BUN Creatinine Ratio 22.8 (6-22); Bilirubin Total 0.5 mg/dL (0.2-1.3); Calcium 9.8 mg/dL (8.4-10.2); Carbon Dioxide 30 mmol/L (22-32); Chloride 102 mmol/L (98-107); Creatine Kinase 53 U/L (55-170); Estimated Glomerular Filt Rate 12.1 mL/min (>60); Glucose 212 mg/dL (80-110); HEMOLYSIS < 15 (0-50); Potassium 5.2 mmol/L (3.4-5.1); Sodium 144 mmol/L (137-145); Total Protein 7.5 g/dL (6.3-8.2)
[2019-03-10 12:58] LABS: Blood Urea Nitrogen 107 mg/dL (9-20)
[2019-03-10 13:08] LABS: B Type Natriuretic Peptide 541 (<100); Troponin I 0.054 ng/mL (0.01-0.034)
[2019-03-10 14:10] VITALS: BP 132/73
[2019-03-10 14:30] VITALS: BP 136/74; PULSE 60; RESP 18; TEMP 36.3; O2SAT 98
[2019-03-10] MEDS: SODIUM CHLORIDE 0.9% 1,000 ML 125 ML IV (15:45)
[2019-03-10 15:49] VITALS: BP 143/75; PULSE 59; RESP 18; O2SAT 96
[2019-03-10 15:56] VITALS: BP 143/65; PULSE 60; RESP 16; TEMP 36.3
--- NOTE | 2019-03-20 16:10 | PC.NURSE ---
Normal Saline at 125mL/hr was started at 1545; Patient transferred to [facility] by [facility] at 1556. Transferred time was at 1556 with Normal Saline infusing at 125mL/hr.
== END 2019-03-10 15:56 | disposition short-term general hospital (02) ==
PROVIDERS: Emergency Provider Nurse Practitioner; PCP Family Medicine
DX: N17.9 Acute kidney failure, unspecified (principal); R06.02 Shortness of breath; R79.89 Other specified abnormal findings of blood chemistry
CPT/HCPCS: 36415; 51798; 71045; 80053; 82550; 83880; 84484; 85025; 93005; 99283; 99285

== ENCOUNTER → 2019-04-14 10:43 | Outpatient (CLI) | payer MEDICARE, SELFPAY ==
--- NOTE | 2019-04-14 | DI.CT.S_ITS ---
PROCEDURE: CT ABDOMEN PELVIS WO CON INDICATIONS: Abdominal distension (gaseous) TECHNIQUE: Noncontrast 5 mm thick sections acquired from the diaphragms to the symphysis. 5 mm coronal and sagittal reformats were then performed. For radiation dose reduction, the following was used: automated exposure control, adjustment of mA and/or kV according to patient size. COMPARISON: [facility], CR, XR CHEST 1V, 03/10/2019, 11:25. [facility], CR, XR CHEST 1 VIEW, 03/12/2019, 16:35. [facility], RG, CT ABDOMEN W/WO CONTRAST, 05/25/2002, 8:11. FINDINGS: Image quality: Excellent. ABDOMEN: Lung bases: Lung bases are clear. Heart size is mildly enlarged. Coronary artery calcifications are present. Solid organs: Liver is normal in size. Gallbladder contains a large rim calcified gallstone as before. No specific evidence of acute cholecystitis. Pancreas is normal in contours. Spleen is normal in size. No adrenal nodules. Kidneys are normal in size, without hydronephrosis or nephrolithiasis. There are numerous bilateral renal cortical and exophytic lesions, presumably bilateral renal cysts although some of these are technically too small to characterize and indeterminate. Peritoneum and bowel: Unenhanced bowel loops demonstrate normal wall thickness and caliber. Stool and gas is present within the rectal vault. There is moderate to large amount of diffuse stool. No specific transition point to suggest bowel obstruction. Colonic diverticulosis is seen without evidence of acute complication. Appendix is not clearly identified however no suspicious pericecal inflammatory changes are seen. No free fluid or air. Nodes and vessels: No retroperitoneal or mesenteric adenopathy by size criteria. Aorta and inferior vena cava are normal in caliber. Scattered vascular calcifications seen in the aorta. Miscellaneous: No ventral hernias. PELVIS: Genitourinary: Bladder contracted and a Finley catheter is present. Miscellaneous: No inguinal hernias or adenopathy. Bones: No suspicious bony lesions. No vertebral body compression fractures. IMPRESSION: No definite interval change or acute process seen. No specific evidence of bowel obstruction identified. Moderate to large amount of stool, suggesting constipation Large rim calcified gallstone as before. Bilateral renal cysts. Additional chronic and incidental findings as above. Dictated by: Georges Osborne M.D. on 04/14/2019 at 14:26 Approved by: Georges Osborne M.D. on 04/14/2019 at 14:33
== END ==
DX: R14.0 Abdominal distension (gaseous) (principal); K80.20 Calculus of gallbladder without cholecystitis without obstruction; N28.1 Cyst of kidney, acquired
CPT/HCPCS: 74176